=== PATIENT | female | born 1980 | race Caucasian/White ===

== ENCOUNTER → 2022-07-04 16:54 | Outpatient (CLI) | payer OTHER, SELFPAY ==
--- NOTE | ~2022-07-04 | MR_ITS ---
EXAMINATION: MR brain/brain stem wo con DATE: 07/04/2022 17:28 INDICATION: Chronic migraine without aura. TECHNIQUE: Magnetic resonance imaging (MRI) of the brain and brainstem was performed without intraven ous contrast. COMPARISON: None. FINDINGS: There are approximately 7 foci of increased T2-weighted signal intensity in the white matte r of the frontal lobes. There is no acute ischemic infarct or intracranial hemorrhage. The ventricles are normal in size. The paranasal sinuses are clear. The orbits are normal. The mastoid air cells ar e normal. IMPRESSION: 1. Mild nonspecific cerebral white matter disease. The differential diagnosis includes premature chronometer tester zayra small vessel ischemic disease (especially if the patient has cardiovascular risk factors), demyel inating disease such as multiple sclerosis, drug abuse, vasculitis, or reactive astrocytosis (gliosis ) secondary to nonspecific etiology. Reviewed, dictated and finalized at location A. IMPRESSION: 1. Mild nonspecific cerebral white matter disease. The differential diagnosis i ncludes premature chronic small vessel ischemic disease (especially if the jamal ent has cardiovascular risk factors), demyelinating disease such as multiple sc lerosis, drug abuse, vasculitis, or reactive astrocytosis (gliosis) secondary t o nonspecific etiology.
== END ==
PROVIDERS: PCP Internal Medicine
DX: G43.709 Chronic migraine without aura, not intractable, without status migrainosus (principal); R93.0 Abnormal findings on diagnostic imaging of skull and head, not elsewhere classified
CPT/HCPCS: 70551